=== PATIENT | female | born 1935 | race Caucasian/White ===

== ENCOUNTER 2019-04-09 09:00 | Inpatient (IN) | payer OTHER, MEDICAID ==
[2019-03-30 09:44] VITALS: BMI 28.2
[~2019-04-09] VITALS: Ht 152.4 cm; Wt 68.2 kg
[2019-04-09] VITALS (22 sets, daily range): BP systolic 135–166; BP diastolic 59–81; PULSE 61–80; RESP 16–35; Ht 152.4 cm; Wt 68.2 kg
[2019-04-09] MEDS ORDERED: TRANEXAMIC ACID 1GM/100ML(PMX) 100 ML PRE-OP X1 IVPB ONE (10:00)
[2019-04-09] MEDS ORDERED: ACETAMINOPHEN 500 MG TAB PO ONE (10:00)
[2019-04-09] MEDS ORDERED: LACTATED RINGER'S 1,000 ML IV SCH (10:00)
[2019-04-09] MEDS ORDERED: TRANEXAMIC ACID 1GM/100ML(PMX) 100 ML INTRA-OP X1 IVPB ONE (10:00)
[2019-04-09] MEDS ORDERED: DEXAMETHASONE 4 MG/ML 1 ML INJ IV ONE (10:00)
[2019-04-09] MEDS ORDERED: ACETAMINOPHEN 1000MG/100ML IV 100 ML IVPB ONE (12:30)
[2019-04-09] MEDS ORDERED: DONE10TA7 PO (12:35)
[2019-04-09] MEDS ORDERED: TRANEXAMIC ACID 1GM/100ML(PMX) 200 ML ONE (12:54)
--- NOTE | 2019-04-09 14:01 | PREAC ---
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 not on B-Josse Reported Medications Donepezil* (Aricept*) 10 Mg Tablet, 10 MG PO DAILY, TAB 04/09/19 Current Medications Lactated Ringer's 1,000 ml @ 125 mls/hr Q8H IV Last administered on 04/09/19at 12:19; Admin Dose 125 MLS/HR; Start 04/09/19 at 10:00; Stop 04/09/19 at 17:59 Meds reviewed: Yes Allergies Coded Allergies: Penicillins (Verified Allergy, Unknown, 04/09/19) Allergies Reviewed: Yes Labs/Studies Labs Reviewed: Reviewed by anesthesiologist Blood Bank Test 04/09/19 11:58 Antibody Screen NEGATIVE Blood Product Summary Counts Blood Type O POSITIVE Crossmatch Red Blood Cells test: N/A Studies: ECG, CXR, 2D Echo Pre-procedure Exam Last vitals Vital Signs Date Temp Pulse Resp B/P (MAP) Pulse Ox O2 O2 Flow FiO2 Time Delivery Rate 04/09/19 97.3 70 16 159/70 16 Room Air 12:08 (99) Airway: Adequate mouth opening, Adequate thyromental dist Mallampati: Mallampati II Teeth: Abnormal (upper partials) Lung: Normal Heart: Normal ASA Physical Status ASA physical status: 2 Emergency: None Planned Anesthetic General/MAC: Mask (vs. ), LMA Neuraxial: Spinal Planned Pain Management Parenteral pain med Pre-operative Attestations Prior to commencing anesthesia and surgery, the patient was re-evaluated, there was verification of: *The patient's identity *The results of appropriate recent lab work and preoperative vital signs *The above evaluation not changing prior to induction *Anesthetic plan, risk benefits, alternative and complications discussed with patient/family; questions answered; patient/family understands, accepts and wishes to proceed. MAIRA SEAMAN MD Apr 09, 2019 14:01
[2019-04-09] MEDS ORDERED: POLYMYXIN B 500000 UNIT INJ ONE (14:35)
[2019-04-09] MEDS ORDERED: BACITRACIN 50000 UNITS INJ ONE (14:36)
--- NOTE | 2019-04-09 15:37 | HPN ---
Date/Time of Note Date/Time of Note DATE: 04/09/19 TIME: 15:37 Interval H&P Admission Note Pt. seen H&P reviewed: No system changes MIGUEL BARRETT Apr 09, 2019 15:37
[2019-04-09] MEDS ORDERED: FENTAnyl 50 MCG/ML VIAL ONE (15:47)
[2019-04-09] MEDS ORDERED: CEFAZOLIN 1 GM INJ ONE (16:09)
[2019-04-09] MEDS ORDERED: PROPOFOL 20 ML ONE (16:10)
[2019-04-09] MEDS ORDERED: FAMOTIDINE 20 MG INJ ONE (16:10)
[2019-04-09] MEDS ORDERED: ONDANSETRON 4 MG INJ ONE (16:10)
[2019-04-09] MEDS: LACTATED RINGER'S 1,000 ML IV SCH ×2 (17:41→19:59)
--- NOTE | 2019-04-09 17:41 | SIPON ---
Date/Time of Note Date/Time of Note DATE: 04/09/19 TIME: 17:39 Operative Report Preoperative Diagnosis left femur stress fracture Postoperative Diagnosis same Operation/Procedure Performed left femur plating and strut grafting Surgeon see signature line family readiness support assistant maureen COATS)_C Anesthesia: spinal Estimated blood loss: 250 - 300 ml's Transfusion Required none Specimen none Grafts/Implants femoral strut graft, Montage graft substitute, synthes 10 holed plate Complications none MIGUEL BARRETT Apr 09, 2019 17:41
[2019-04-09] MEDS ORDERED: oxyCODONE 5 MG TAB PO PRN (18:00)
[2019-04-09] MEDS ORDERED: NALOXONE (0.4 MG/ML) INJ IV PRN (18:00)
[2019-04-09] MEDS ORDERED: MAGNESIUM HYDROXIDE 30ML CUP PO PRN (18:00)
[2019-04-09] MEDS ORDERED: NACL 0.9% 3 ML SYG IV SCH (18:00)
[2019-04-09] MEDS ORDERED: ROPIVACAINE 0.5 % 30 ML VIAL ONE (18:05)
--- NOTE | 2019-04-09 18:41 | PAC ---
Date/Time of Note Date/Time of Note DATE: 04/09/19 TIME: 18:40 Post-Anesthesia Notes Post-Anesthesia Note Last documented vital signs Vital Signs Date Temp Pulse Resp B/P (MAP) Pulse Ox O2 O2 Flow FiO2 Time Delivery Rate 04/09/19 97.3 70 16 159/70 16 Room Air 12:08 (99) Activity: WNL Respiratory function: WNL Cardiovascular function: WNL Mental status: Baseline Pain reasonably controlled: Yes Hydration appropriate: Yes Nausea/Vomiting absent: Yes Comments BP: 140/81 HR: 74 RR: 15 T: 98 SaO2: 96% MAIRA HENDRICKSON MD Apr 09, 2019 18:41
[2019-04-09] MEDS ORDERED: MEPERIDINE 25 MG INJ IV PRN (19:00)
[2019-04-09] MEDS ORDERED: ONDANSETRON 4 MG INJ IV PRN (19:00)
[2019-04-09] MEDS ORDERED: FENTAnyl 50 MCG/ML VIAL IV PRN (19:00)
[2019-04-09] MEDS ORDERED: HYDROmorphONE 1 MG/5 ML IV SYRINGE IV PRN ×2 (19:00)
[2019-04-09] MEDS ORDERED: hydrALAzine 20 MG INJ IV PRN (19:00)
[2019-04-09] MEDS ORDERED: DIPHENHYDRAMINE 50 MG INJ IV PRN (19:00)
[2019-04-09] MEDS ORDERED: PROCHLORPERAZINE 10 MG INJ IV PRN (19:00)
[2019-04-09] MEDS: CLINDAMYCIN 900 MG/D5W (PMX) 50 ML IVPB SCH (19:59)
[2019-04-09] MEDS: GABAPENTIN 100 MG CAP PO SCH (20:05)
--- NOTE | 2019-04-09 20:13 | CONS ---
Assessment/Plan Assessment/Plan Hospital Course (Demo Recall) This is a 83-year-old female who is postop left femur plating and strut grafting #1 left femur stress fracture: Patient is POD #0left femur plating and strut grafting. Weightbearing status as per orthopedic. PT OT evaluation as per orthopedics. Pain control. Will check CBC and CMP in the a.m. DVT prophylaxis of aspirin 81 mg p.o. twice daily has been ordered in the a.m. as per Ortho. #2 mild dementia: Continue donepezil #3 DVT GI prophylaxis: SCDs, she has been initiated on aspirin 81 mg p.o. twice daily to be started in the a.m. Further treatment strategy will be implemented as per the clinical course Thank you for this consultation, we will follow with you Consultation Date/Type/Reason Admit Date/Time Apr 09, 2019 at 10:53 Date of Consultation: Apr 09, 2019 Type of Consult medical management Reason for Consultation medical management Requesting Provider: MIGUEL BARRETT Date/Time of Note DATE: 04/09/19 TIME: 20:12 Hx of Present Illness Chief complaint: History of left femur fracture This is a 83-year-old female with a past medical history of mild dementia who presented today for elective surgery for left femur stress fracture.Patient has a history of left hip replacement, she reports that again she continued to have pain and she was taken to the OR by for left femur plating and strut grafting. She is doing well postop. Her pain is well controlled. Allergies: Penicillin Medications: Aricept Const: As per HPI Eyes : No pain discharge or redness or change in visual acuity ENT: No pain, sore throat, congestion, congestion, dysphagia or discharge Respiratory: No shortness of breath, cough, sputum, wheezing, or pleuritic pain Cardiovascular: No chest pain, palpitation, PND, or edema GI : no change in appetite, abdominal pain, nausea, vomiting, diarrhea, constipation, or change in the color his stool Genitourinary: No dysuria, hematuria, flank pain , discharge or CVA tenderness Musculoskeletal: As per HPI Skin: No rash, bruising or hives Neuro: No headache, dizziness, syncope, seizure, focal weakness Endocrine: No polyuria, polydipsia, temperature intolerance Psych: No hallucination, depression, anxiety or suicidal ideation Past Medical History Mild dementia, osteoarthritis, left femur stress fracture Home Meds Reported Medications Donepezil* (Aricept*) 10 Mg Tablet, 10 MG PO DAILY, TAB 04/09/19 Medications Current Medications Lactated Ringer's 1,000 ml @ 80 mls/hr [id number] IV Last administered on at 19:59; Admin Dose 80 MLS/HR; Start 04/09/19 at 17:41 Oxycodone HCl (Roxicodone) 10 mg Q4H PRN PO .PAIN; Start 04/09/19 at 18:00 Oxycodone HCl (Roxicodone) 5 mg Q4H PRN PO .PAIN; Start 04/09/19 at 18:00 Ondansetron HCl (Zofran Inj) 4 mg Q4H PRN IV NAUSEA/VOMITING; Start 04/10/19 at 18:00 Clindamycin HCl/ Dextrose 50 ml @ 50 mls/hr Q8H IVPB Last administered on 04/09/19at 19:59; Admin Dose 50 MLS/HR; Start 04/09/19 at 18:00; Stop 04/10/19 at 10:59 Gabapentin (Neurontin) 100 mg TID PO Last administered on 04/09/19at 20:05; Admin Dose 100 MG; Start 04/09/19 at 21:00 Pantoprazole (Protonix Tab) 40 mg DAILY@06 PO ; Start 04/10/19 at 06:00 Docusate Sodium (Colace) 200 mg BID PO ; Start 04/10/19 at 09:00; Stop 04/12/19 at 21:01 Magnesium Hydroxide (Milk Of Mag) 30 ml HS PRN PO .CONSTIPATION; Start 04/09/19 at 18:00 Naloxone HCl (Narcan) 0.2 mg Q2M PRN IV .RESP RATE; Start 04/09/19 at 18:00 IV Flush (NS 3 ml) 3 ml per protocol IV ; Start 04/09/19 at 18:00 Aspirin (Halfprin) 81 mg BID PO ; Start 04/10/19 at 09:00 Hydromorphone HCl (Dilaudid) 0.2 mg PACU PRN IV PAIN LEVEL 1-5; Start 04/09/19 at 19:00; Stop 04/09/19 at 23:59 Hydromorphone HCl (Dilaudid) 0.4 mg PACU PRN IV PAIN LEVEL 6-10; Start 04/09/19 at 19:00; Stop 04/09/19 at 23:59 Fentanyl (Sublimaze) 25 mcg PACU ORDER PRN IV MILD PAIN 1-3; Start 04/09/19 at 19:00; Stop 04/09/19 at 23:59 Ondansetron HCl (Zofran Inj) 4 mg PACU ORDER PRN IV NAUSEA/VOMITING; Start 04/09/19 at 19:00; Stop 04/09/19 at 23:59 Prochlorperazine (Compazine Inj) 5 mg PACU ORDER PRN IV NAUSEA/VOMITING; Start 04/09/19 at 19:00; Stop 04/09/19 at 23:59 Hydralazine HCl (Apresoline) 5 mg PACU ORDER PRN IV HIGH BLOOD PRESSURE; Start 04/09/19 at 19:00; Stop 04/09/19 at 23:59 Meperidine HCl (Demerol) 25 mg PACU ORDER PRN IV .RIGORS; Start 04/09/19 at 19:00; Stop 04/09/19 at 23:59 Diphenhydramine HCl (Benadryl) 12.5 mg PACU ORDER PRN IV .PRURITUS; Start 04/09/19 at 19:00; Stop 04/09/19 at 23:59 Allergies: Coded Allergies: Penicillins (Verified Allergy, Unknown, 04/09/19) Past Surgical History Left hip total hip replacement Left femur plating and struck grafting Family History Significant Family History: no pertinent family hx Social History Alcohol Use: none Smoking Status: Never smoker Drug Use: none Exam/Review of Systems Exam Vitals Vital Signs Date Temp Pulse Resp B/P (MAP) Pulse Ox O2 O2 Flow FiO2 Time Delivery Rate 04/09/19 76 21 138/79 94 Room Air 19:28 (98) 04/09/19 6.0 18:28 04/09/19 98.0 18:23 Exam General: Patient is a pleasant female currently lying in bed in no acute distress postoperatively HEENT: Atraumatic, normocephalic. The pupils are equal, round and reactive. Extraocular motor are intact Neck: Supple with full range of motion. No rigidity or meningismus Chest: Nontender Lungs: Clear to auscultation bilaterally no crackles rales or wheezing Heart: Normal S1-S2, Regular rhythm and rate. No murmur, S3, or S4 Abdomen: Soft , nontender, nondistended , bowel sounds are present. No guarding no rebound tenderness , No masses or organomegaly. No costovertebral temporal angle mass Extremities: Normal to inspection, no edema no cyanosis Skin: Left hip dressing clean dry and intact, did not palpate the hip as she is postop. Neurologic: Normal mental status, speech normal, cranial nerves II through XII are intact, motor and sensory are intact, Medications Medication Current Medications Lactated Ringer's 1,000 ml @ 80 mls/hr [id number] IV Last administered on 04/09/19at 19:59; Admin Dose 80 MLS/HR; Start 04/09/19 at 17:41 Oxycodone HCl (Roxicodone) 10 mg Q4H PRN PO .PAIN; Start 04/09/19 at 18:00 Oxycodone HCl (Roxicodone) 5 mg Q4H PRN PO .PAIN; Start 04/09/19 at 18:00 Ondansetron HCl (Zofran Inj) 4 mg Q4H PRN IV NAUSEA/VOMITING; Start 04/10/19 at 18:00 Clindamycin HCl/ Dextrose 50 ml @ 50 mls/hr Q8H IVPB Last administered on 04/09/19at 19:59; Admin Dose 50 MLS/HR; Start 04/09/19 at 18:00; Stop 04/10/19 at 10:59 Gabapentin (Neurontin) 100 mg TID PO Last administered on 04/09/19at 20:05; Admin Dose 100 MG; Start 04/09/19 at 21:00 Pantoprazole (Protonix Tab) 40 mg DAILY@06 PO ; Start 04/10/19 at 06:00 Docusate Sodium (Colace) 200 mg BID PO ; Start 04/10/19 at 09:00; Stop 04/12/19 at 21:01 Magnesium Hydroxide (Milk Of Mag) 30 ml HS PRN PO .CONSTIPATION; Start 04/09/19 at 18:00 Naloxone HCl (Narcan) 0.2 mg Q2M PRN IV .RESP RATE; Start 04/09/19 at 18:00 IV Flush (NS 3 ml) 3 ml per protocol IV ; Start 04/09/19 at 18:00 Aspirin (Halfprin) 81 mg BID PO ; Start 04/10/19 at 09:00 Hydromorphone HCl (Dilaudid) 0.2 mg PACU PRN IV PAIN LEVEL 1-5; Start 04/09/19 at 19:00; Stop 04/09/19 at 23:59 Hydromorphone HCl (Dilaudid) 0.4 mg PACU PRN IV PAIN LEVEL 6-10; Start 04/09/19 at 19:00; Stop 04/09/19 at 23:59 Fentanyl (Sublimaze) 25 mcg PACU ORDER PRN IV MILD PAIN 1-3; Start 04/09/19 at 19:00; Stop 04/09/19 at 23:59 Ondansetron HCl (Zofran Inj) 4 mg PACU ORDER PRN IV NAUSEA/VOMITING; Start 04/09/19 at 19:00; Stop 04/09/19 at 23:59 Prochlorperazine (Compazine Inj) 5 mg PACU ORDER PRN IV NAUSEA/VOMITING; Start 04/09/19 at 19:00; Stop 04/09/19 at 23:59 Hydralazine HCl (Apresoline) 5 mg PACU ORDER PRN IV HIGH BLOOD PRESSURE; Start 04/09/19 at 19:00; Stop 04/09/19 at 23:59 Meperidine HCl (Demerol) 25 mg PACU ORDER PRN IV .RIGORS; Start 04/09/19 at 19:00; Stop 04/09/19 at 23:59 Diphenhydramine HCl (Benadryl) 12.5 mg PACU ORDER PRN IV .PRURITUS; Start 04/09/19 at 19:00; Stop 04/09/19 at 23:59 ESTHER CARLSON Apr 09, 2019 20:13
[2019-04-10 00:30] VITALS: BP 154/67; PULSE 65; RESP 18
[2019-04-10] MEDS: CLINDAMYCIN 900 MG/D5W (PMX) 50 ML IVPB SCH ×2 (02:56→10:21)
[2019-04-10 05:00] VITALS: BP 149/67; PULSE 60; RESP 18
[2019-04-10] MEDS: PANTOPRAZOLE (EC) 40 MG TAB PO SCH (06:08)
[2019-04-10 08:02] VITALS: BP 156/64; PULSE 68; RESP 18
[2019-04-10] MEDS: DOCUSATE SODIUM 100 MG CAP PO SCH ×2 (09:15→20:15)
[2019-04-10] MEDS: oxyCODONE 5 MG TAB PO PRN (09:16)
[2019-04-10] MEDS: ASPIRIN (EC) 81 MG TAB PO SCH ×2 (09:16→20:15)
[2019-04-10] MEDS: GABAPENTIN 100 MG CAP PO SCH ×3 (09:16→20:15)
[2019-04-10] MEDS: DONEPEZIL 10 MG TAB PO SCH (09:18)
--- NOTE | 2019-04-10 10:12 | CONS ---
Assessment/Plan Assessment/Plan Hospital Course (Demo Recall) SUBJECTIVE: Incisional pain well controlled. OBJECTIVE: Physical Exam General: Adequately build 83 year-old female lying in bed in no apparent distress. HEENT: Normocephalic, atraumatic. Eyes: Anicteric sclerae, conjunctivae clear. ENT: Nasal septum midline, oral mucosa moist. Neck supple, no JVD noticed. Respiratory: Bilaterally diminished breath sounds. No use of accessory muscles of respiration. No adventitious breath sounds. Cardiovascular: S1, S2 heard. No murmurs or gallops. Abdomen: Soft, nontender, and nondistended. Bowel sounds positive in all 4 quadrants. Genitourinary: Deferred. Extremities: No cyanosis, no clubbing, no edema. Left femoral surgical dr jena. Peripheral pulses palpable. Neurologic: The patient is awake, alert, and oriented. Forgetful. Skin: Normal skin turgor. No skin rashes. Labs & Vitals per chart ASSESSMENT & PLAN 83-year-old female with past medical history of mild dementia who was brought into to [facility] for a elective operation for a left femur stress fracture. The patient underwent a left femur plating and strut grafting on 04/09/2019. The patient was admitted to inpatient setting for further monitoring. Hospitalist consult was called for medical management. 1. Left femur stress fracture. Status post left femur plating and strut grafting on 04/09/2019. Postoperative day #1. Continue pain control. Weightbearing as per orthopedic surgery. Anticoagulation as per orthopedic surgery. 2. Mild dementia. Continue Aricept. Continue frequent reorientation. 3. Normocytic anemia. Most probably anemia of chronic disease. Monitor H&H closely. Diet: Regular diet. DVT prophylaxis: As per orthopedic surgery. CODE STATUS: Full code. Thank you for the consult. Will continue to follow the patient along with you. The patient was seen in collaboration with Dr. Lay. Consultation Date/Type/Reason Admit Date/Time Apr 09, 2019 at 10:53 Initial Consult Date 04/09/19 Type of Consult Medical Reason for Consultation Medical management. Requesting Provider: MIGUEL BARRETT Date/Time of Note DATE: 04/10/19 TIME: 10:09 Exam/Review of Systems Exam Vitals Vital Signs Date Temp Pulse Resp B/P (MAP) Pulse Ox O2 O2 Flow FiO2 Time Delivery Rate 04/10/19 98.0 68 18 156/64 100 Room Air 08:02 (94) 04/09/19 6.0 18:28 Intake and Output 04/09/19 04/09/19 04/10/19 1515:00 23:00 07:00 IntakeIntake Total 3030 ml 1100 ml OutputOutput Total 50 ml 100 ml BalanceBalance 2980 ml 1000 ml Results Result Diagram: 04/10/19 0431 04/10/19 0431 Results 24hrs Laboratory Tests Test 04/09/19 20:24 04/10/19 04:31 04/10/19 08:21 White Blood Count 7.2 11.0 #H Red Blood Count 3.89 L 3.61 L Hemoglobin 11.3 L 10.7 L Hematocrit 35.8 L 32.2 L Mean Corpuscular Volume 92.0 89.2 Mean Corpuscular Hemoglobin 29.0 29.6 Mean Corpuscular 31.6 L 33.2 Hemoglobin Concent Red Cell Distribution Width 13.9 14.0 Platelet Count 163 151 Mean Platelet Volume 11.3 H 12.3 H Immature Granulocytes % 0.300 0.400 Neutrophils % 92.9 H 84.3 H Lymphocytes % 5.3 L 7.2 L Monocytes % 1.4 8.0 Eosinophils % 0.0 0.0 Basophils % 0.1 0.1 Nucleated Red Blood Cells % 0.0 0.0 Immature Granulocytes # 0.020 0.040 H Neutrophils # 6.7 9.3 H Lymphocytes # 0.4 L 0.8 Monocytes # 0.1 L 0.9 Eosinophils # 0.0 0.0 Basophils # 0.0 0.0 Nucleated Red Blood Cells # 0.0 0.0 Sodium Level 140 140 Potassium Level 4.3 3.8 Chloride Level 106 108 Carbon Dioxide Level 26 26 Anion Gap 8 6 Blood Urea Nitrogen 25 H 26 H Creatinine 0.87 0.79 Est Glomerular Filtrat Rate mL/min Glucose Level 156 103 # Calcium Level 8.6 8.6 Total Bilirubin 0.3 Direct Bilirubin 0.00 Indirect Bilirubin 0.3 Aspartate Amino Transf (AST/SGOT) 23 Alanine 18 Aminotransferase (ALT/SGPT) Alkaline Phosphatase 82 Total Protein 6.3 Albumin 3.6 Globulin 2.70 Albumin/Globulin Ratio 1.33 Lab Scanned Report REFERENCE LAB Medications Medication Current Medications Lactated Ringer's 1,000 ml @ 80 mls/hr [id number] IV Last administered on 04/09/19 19:59; Admin Dose 80 MLS/HR; Start 04/09/19 at 17:41 Oxycodone HCl (Roxicodone) 10 mg Q4H PRN PO .PAIN; Start 04/09/19 at 18:00 Oxycodone HCl (Roxicodone) 5 mg Q4H PRN PO .PAIN Last administered on 04/10/19 09:16; Admin Dose 5 MG; Start 04/09/19 at 18:00 Ondansetron HCl (Zofran Inj) 4 mg Q4H PRN IV NAUSEA/VOMITING; Start 04/10/19 at 18:00 Clindamycin HCl/ Dextrose 50 ml @ 50 mls/hr Q8H IVPB Last administered on 04/10/19 02:56; Admin Dose 50 MLS/HR; Start 04/09/19 at 18:00; Stop 04/10/19 at 10:59 Gabapentin (Neurontin) 100 mg TID PO Last administered on 04/10/19 09:16; Admin Dose 100 MG; Start 04/09/19 at 21:00 Pantoprazole (Protonix Tab) 40 mg DAILY@06 PO Last administered on 04/10/19 06:08; Admin Dose 40 MG; Start 04/10/19 at 06:00 Docusate Sodium (Colace) 200 mg BID PO Last administered on 04/10/19 09:15; Admin Dose 200 MG; Start 04/10/19 at 09:00; Stop 04/12/19 at 21:01 Magnesium Hydroxide (Milk Of Mag) 30 ml HS PRN PO .CONSTIPATION; Start 04/09/19 at 18:00 Naloxone HCl (Narcan) 0.2 mg Q2M PRN IV .RESP RATE; Start 04/09/19 at 18:00 IV Flush (NS 3 ml) 3 ml per protocol IV ; Start 04/09/19 at 18:00 Aspirin (Halfprin) 81 mg BID PO Last administered on 04/10/19 09:16; Admin Dose 81 MG; Start 04/10/19 at 09:00 Donepezil HCl (Aricept) 10 mg DAILY PO Last administered on 04/10/19 09:18; Admin Dose 10 MG; Start 04/10/19 at 09:00 LITO ALEMAN NP Apr 10, 2019 10:12
[2019-04-10 14:13] VITALS: BP 140/66; PULSE 70; RESP 18
[2019-04-10] MEDS ORDERED: ONDANSETRON 4 MG INJ IV PRN (18:00)
[2019-04-10 19:10] VITALS: BP 156/67; PULSE 75; RESP 18
[2019-04-10] MEDS: LACTATED RINGER'S 1,000 ML IV SCH (20:15)
[2019-04-11] VITALS (7 sets, daily range): BP systolic 127–177; BP diastolic 6–80; PULSE 70–112; RESP 18–20
[2019-04-11] MEDS ORDERED: hydrALAzine 20 MG INJ IV PRN (03:00)
[2019-04-11] MEDS: PANTOPRAZOLE (EC) 40 MG TAB PO SCH (06:36)
[2019-04-11] MEDS: LACTATED RINGER'S 1,000 ML IV SCH (07:11)
[2019-04-11] MEDS: DOCUSATE SODIUM 100 MG CAP PO SCH ×2 (08:51→20:44)
[2019-04-11] MEDS: oxyCODONE 5 MG TAB PO PRN (08:51)
[2019-04-11] MEDS: DONEPEZIL 10 MG TAB PO SCH (08:51)
[2019-04-11] MEDS: ASPIRIN (EC) 81 MG TAB PO SCH ×2 (08:51→20:44)
[2019-04-11] MEDS: GABAPENTIN 100 MG CAP PO SCH ×3 (08:51→20:45)
--- NOTE | 2019-04-11 09:50 | CONS ---
Assessment/Plan Assessment/Plan Hospital Course (Demo Recall) SUBJECTIVE: POD#2.No acute overnight episodes. OBJECTIVE: Vital signs-see below PHYSICAL EXAM: Constitutional: Elderly female,not in acute distress. HEENT: Head atraumatic and normocephalic. Eyes: Extraocular muscles intact. Anicteric sclerae. Pupils equal bilaterally, reactive to light. NECK: Supple without lymph node. CHEST: Clear and good breath sounds equally. No wheezing. No rhonchi. HEART: S1, S2. Regular rate and rhythm. ABDOMEN: Soft/non tender with no rebound tenderness. Bowel sounds were present. EXTREMITIES: L hip surgical site dressing c/d/i. No cyanosis, clubbing or ed twyla. NEUROLOGIC: Alert and oriented x3. No focal deficit. No sensory deficit. PSYCHOSOCIAL: No signs of depression. INTEGUMENTARY: No open wounds. ASSESSMENT AND PLAN:83-yo F w/dementia here w/left femur stress fracture requiring surgical intervention. Left femur stress fracture. -s/p left femur plating and strut grafting on 04/09/2019. -dvt ppx/pain control/rehab Dementia. -on Aricept. Chronic anemia -stable Diet: Regular diet. DVT prophylaxis:Aspirin bid per ortho CODE STATUS: Full code. Dispo:Agree w/ DC plan home w/[facility] The patient was seen in collaboration with Dr. Lay. Consultation Date/Type/Reason Admit Date/Time Apr 09, 2019 at 10:53 Initial Consult Date 04/09/19 Requesting Provider: MIGUEL BARRETT Date/Time of Note DATE: 04/11/19 TIME: 09:50 Exam/Review of Systems Exam Vitals Vital Signs Date Temp Pulse Resp B/P (MAP) Pulse Ox O2 O2 Flow FiO2 Time Delivery Rate 04/11/19 98.5 96 18 145/52 98 Room Air 07:50 (83) 04/09/19 6.0 18:28 Intake and Output 04/10/19 04/10/19 04/11/19 1515:00 23:00 07:00 IntakeIntake Total 570 ml 1100 ml OutputOutput Total 500 ml BalanceBalance 70 ml 1100 ml Results Result Diagram: 04/11/19 0501 04/11/19 0501 Results 24hrs Laboratory Tests Test 04/11/19 05:01 White Blood Count 8.4 # Red Blood Count 3.77 L Hemoglobin 11.2 L Hematocrit 33.5 L Mean Corpuscular Volume 88.9 Mean Corpuscular Hemoglobin 29.7 Mean Corpuscular Hemoglobin Concent 33.4 Red Cell Distribution Width 14.6 H Platelet Count 146 Mean Platelet Volume 11.6 H Immature Granulocytes % 0.500 H Neutrophils % 74.0 Lymphocytes % 13.4 L Monocytes % 11.8 H Eosinophils % 0.1 Basophils % 0.2 Nucleated Red Blood Cells % 0.0 Immature Granulocytes # 0.040 H Neutrophils # 6.2 Lymphocytes # 1.1 Monocytes # 1.0 H Eosinophils # 0.0 Basophils # 0.0 Nucleated Red Blood Cells # 0.0 Sodium Level 139 Potassium Level 3.8 Chloride Level 106 Carbon Dioxide Level 27 Anion Gap 6 Blood Urea Nitrogen 19 Creatinine 0.72 Est Glomerular Filtrat Rate mL/min Glucose Level 97 Calcium Level 8.7 Medications Medication Current Medications Lactated Ringer's 1,000 ml @ 80 mls/hr [id number] IV Last administered on 04/10/19at 20:15; Admin Dose 80 MLS/HR; Start 04/09/19 at 17:41 Oxycodone HCl (Roxicodone) 10 mg Q4H PRN PO .PAIN; Start 04/09/19 at 18:00 Oxycodone HCl (Roxicodone) 5 mg Q4H PRN PO .PAIN Last administered on 04/11/19at 08:51; Admin Dose 5 MG; Start 04/09/19 at 18:00 Ondansetron HCl (Zofran Inj) 4 mg Q4H PRN IV NAUSEA/VOMITING; Start 04/10/19 at 18:00 Gabapentin (Neurontin) 100 mg TID PO Last administered on 04/11/19at 08:51; Admi n Dose 100 MG; Start 04/09/19 at 21:00 Pantoprazole (Protonix Tab) 40 mg DAILY@06 PO Last administered on 04/11/19at 06:36; Admin Dose 40 MG; Start 04/10/19 at 06:00 Docusate Sodium (Colace) 200 mg BID PO Last administered on 04/11/19at 08:51; Admin Dose 200 MG; Start 04/10/19 at 09:00; Stop 04/12/19 at 21:01 Magnesium Hydroxide (Milk Of Mag) 30 ml HS PRN PO .CONSTIPATION; Start 04/09/19 at 18:00 Naloxone HCl (Narcan) 0.2 mg Q2M PRN IV .RESP RATE; Start 04/09/19 at 18:00 IV Flush (NS 3 ml) 3 ml per protocol IV ; Start 04/09/19 at 18:00 Aspirin (Halfprin) 81 mg BID PO Last administered on 04/11/19at 08:51; Admin Dose 81 MG; Start 04/10/19 at 09:00 Donepezil HCl (Aricept) 10 mg DAILY PO Last administered on 04/11/19at 08:51; Admin Dose 10 MG; Start 04/10/19 at 09:00 Hydralazine HCl (Apresoline) 10 mg Q4H PRN IV SBP above 170 Last administered on 04/11/19at 03:23; Admin Dose 10 MG; Start 04/11/19 at 03:00 VICTORIANO THOMPSON NP Apr 11, 2019 09:50
--- NOTE | 2019-04-11 14:22 | PN ---
Date/Time of Note Date/Time of Note DATE: 04/11/19 TIME: 14:20 Assessment/Plan Lines/Catheters IV Catheter Type (from Nrsg): Peripheral IV Assessment/Plan Assessment/Plan 83-year-old female who is progressing slowly after left femur plating. Based on her increased pain today and decreased mobility, 1 more day in the hospital with physical therapy will be quite beneficial. The patient will be discharged tomorrow Subjective 24 Hr Interval Summary Significant left thigh pain and difficulty with walking Feeding: advancing diet Pain Control: moderate Exam/Review of Systems Vital Signs Vitals Vital Signs Date Temp Pulse Resp B/P (MAP) Pulse Ox O2 O2 Flow FiO2 Time Delivery Rate 04/11/19 98.5 96 18 145/52 98 Room Air 07:50 (83) 04/09/19 6.0 18:28 Intake and Output 04/10/19 04/10/19 04/11/19 1515:00 23:00 07:00 IntakeIntake Total 570 ml 1100 ml OutputOutput Total 500 ml BalanceBalance 70 ml 1100 ml Exam Free Text/Dictation Left thigh incision is clean. Dressing is clean with no drainage. Moderate swelling of the left thigh is noted. There is no neurovascular deficit. Results Result Diagram: 04/11/19 0501 04/11/19 0501 MIGUEL BARRETT Apr 11, 2019 14:22
--- NOTE | 2019-04-11 14:23 | DS ---
Date/Time of Note Date/Time of Note DATE: 04/11/19 TIME: 14:22 Discharge Summary Admission/Discharge Info Admit Date/Time Apr 09, 2019 at 10:53 Discharge Date/Time April 12, 2019 Discharge Diagnosis Left femur plating Patient Condition: Good Hospital Course 83-year-old female who underwent a plating and bone grafting of her left femur for a stress fracture. Patient progressed slowly with physical therapy and is being discharged on April 12, 2019. Home health physical therapy is arranged. The patient will follow-up in 2 weeks Home Meds Reported Medications Donepezil* (Aricept*) 10 Mg Tablet, 10 MG PO DAILY, TAB 04/09/19 Follow-up Plan 2 weeks Primary Care Provider Not On Staff Doctor Time spent on discharge: < 30 minutes Pending Labs Laboratory Tests Test 04/11/19 05:01 White Blood Count 8.4 10^3/ul (4.8-10.8) Red Blood Count 3.77 10^6/ul (4.20-5.40) Hemoglobin 11.2 g/dl (12.0-16.0) Hematocrit 33.5 % (37.0-47.0) Mean Corpuscular Volume 88.9 fl (82.0-101.0) Mean Corpuscular Hemoglobin 29.7 pg (29.0-33.0) Mean Corpuscular Hemoglobin Concent 33.4 g/dl (32.0-37.0) Red Cell Distribution Width 14.6 % (11.5-14.5) Platelet Count 146 10^3/UL (140-415) Mean Platelet Volume 11.6 fl (7.4-10.4) Immature Granulocytes % 0.500 % (0.001-0.429) Neutrophils % 74.0 % (39.0-77.0) Lymphocytes % 13.4 % (15.0-51.0) Monocytes % 11.8 % (0.0-11.0) Eosinophils % 0.1 % (0.0-7.0) Basophils % 0.2 % (0.0-2.0) Nucleated Red Blood Cells % 0.0 /100WBC (0.0-0.0) Immature Granulocytes # 0.040 10^3/ul (0.0-0.031) Neutrophils # 6.2 10^3/ul (1.6-7.5) Lymphocytes # 1.1 10^3/ul (0.8-2.9) Monocytes # 1.0 10^3/ul (0.3-0.9) Eosinophils # 0.0 10^3/ul (0.0-0.5) Basophils # 0.0 10^3/ul (0.0-0.1) Nucleated Red Blood Cells # 0.0 10^3/ul (0.0-0.0) Sodium Level 139 mmol/L (135-144) Potassium Level 3.8 mmol/L (3.5-5.1) Chloride Level 106 mmol/L (97-110) Carbon Dioxide Level 27 mmol/L (21-31) Anion Gap 6 (5-13) Blood Urea Nitrogen 19 mg/dl (7-20) Creatinine 0.72 mg/dl (0.44-1.00) Est Glomerular Filtrat Rate mL/min mL/min (>60) Glucose Level 97 mg/dl (70-220) Calcium Level 8.7 mg/dl (8.4-10.2) MIGUEL BARRETT Apr 11, 2019 14:23
[2019-04-12 02:10] VITALS: BP 124/60; PULSE 90; RESP 17
[2019-04-12] MEDS: PANTOPRAZOLE (EC) 40 MG TAB PO SCH (06:34)
[2019-04-12] MEDS: oxyCODONE 5 MG TAB PO PRN ×2 (07:09→17:26)
[2019-04-12 07:50] VITALS: BP 165/68; PULSE 79; RESP 18
[2019-04-12] MEDS: ASPIRIN (EC) 81 MG TAB PO SCH ×2 (08:46→20:10)
[2019-04-12] MEDS: DOCUSATE SODIUM 100 MG CAP PO SCH ×2 (08:47→20:09)
[2019-04-12] MEDS: GABAPENTIN 100 MG CAP PO SCH ×3 (08:47→20:10)
[2019-04-12] MEDS: DONEPEZIL 10 MG TAB PO SCH (08:47)
--- NOTE | 2019-04-12 10:55 | CONS ---
Assessment/Plan Assessment/Plan Hospital Course (Demo Recall) SUBJECTIVE: POD#3.No acute overnight episodes. OBJECTIVE: Vital signs-see below PHYSICAL EXAM: Constitutional: Elderly female,not in acute distress. HEENT: Head atraumatic and normocephalic. Eyes: Extraocular muscles intact. Anicteric sclerae. Pupils equal bilaterally, reactive to light. NECK: Supple without lymph node. CHEST: Clear and good breath sounds equally. No wheezing. No rhonchi. HEART: S1, S2. Regular rate and rhythm. ABDOMEN: Soft/non tender with no rebound tenderness. Bowel sounds were present. EXTREMITIES: L hip surgical site dressing c/d/i. No cyanosis, clubbing or ed twyla. NEUROLOGIC: Alert and oriented x3. No focal deficit. No sensory deficit. PSYCHOSOCIAL: No signs of depression. INTEGUMENTARY: No open wounds. ASSESSMENT AND PLAN:83-yo F w/dementia here w/left femur stress fracture requiring surgical intervention. Left femur stress fracture. -s/p left femur plating and strut grafting on 04/09/2019. -dvt ppx/pain control/rehab Dementia. -on Aricept. Chronic anemia -stable Diet: Regular diet. DVT prophylaxis:Aspirin bid per ortho CODE STATUS: Full code. Dispo:stable from medical standpoint for dc HHPT vs ARU The patient was seen in collaboration with Dr. Lay. Consultation Date/Type/Reason Admit Date/Time Apr 09, 2019 at 10:53 Initial Consult Date 04/09/19 Requesting Provider: MIGUEL BARRETT Date/Time of Note DATE: 04/12/19 TIME: 10:54 Exam/Review of Systems Exam Vitals Vital Signs Date Temp Pulse Resp B/P (MAP) Pulse Ox O2 O2 Flow FiO2 Time Delivery Rate 04/12/19 98.3 79 18 165/68 97 Room Air 07:50 (100) 04/09/19 6.0 18:28 Intake and Output 04/11/19 04/11/19 04/12/19 1515:00 23:00 07:00 IntakeIntake Total 800 ml 1180 ml 200 ml BalanceBalance 800 ml 1180 ml 200 ml Results Result Diagram: 04/12/19 0436 04/12/19 0436 Results 24hrs Laboratory Tests Test 04/12/19 04:36 White Blood Count 7.1 Red Blood Count 3.66 L Hemoglobin 10.9 L Hematocrit 32.5 L Mean Corpuscular Volume 88.8 Mean Corpuscular Hemoglobin 29.8 Mean Corpuscular Hemoglobin Concent 33.5 Red Cell Distribution Width 14.6 H Platelet Count 152 Mean Platelet Volume 11.5 H Immature Granulocytes % 0.300 Neutrophils % 68.2 Lymphocytes % 15.6 Monocytes % 14.7 H Eosinophils % 0.8 Basophils % 0.4 Nucleated Red Blood Cells % 0.0 Immature Granulocytes # 0.020 Neutrophils # 4.8 Lymphocytes # 1.1 Monocytes # 1.0 H Eosinophils # 0.1 Basophils # 0.0 Nucleated Red Blood Cells # 0.0 Sodium Level 140 Potassium Level 4.0 Chloride Level 106 Carbon Dioxide Level 29 Anion Gap 5 Blood Urea Nitrogen 19 Creatinine 0.73 Est Glomerular Filtrat Rate mL/min Glucose Level 111 Calcium Level 8.4 Medications Medication Current Medications Oxycodone HCl (Roxicodone) 10 mg Q4H PRN PO .PAIN Last administered on 04/11/19 11:53; Admin Dose 10 MG; Start 04/09/19 at 18:00 Oxycodone HCl (Roxicodone) 5 mg Q4H PRN PO .PAIN Last administered on 04/12/19 07:09; Admin Dose 5 MG; Start 04/09/19 at 18:00 Ondansetron HCl (Zofran Inj) 4 mg Q4H PRN IV NAUSEA/VOMITING; Start 04/10/19 at 18:00 Gabapentin (Neurontin) 100 mg TID PO Last administered on 04/12/19 08:47; Admin Dose 100 MG; Start 04/09/19 at 21:00 Pantoprazole (Protonix Tab) 40 mg DAILY@06 PO Last administered on 04/12/19 06:34; Admin Dose 40 MG; Start 04/10/19 at 06:00 Docusate Sodium (Colace) 200 mg BID PO Last administered on 04/12/19 08:47; Admin Dose 200 MG; Start 04/10/19 at 09:00; Stop 04/12/19 at 21:01 Magnesium Hydroxide (Milk Of Mag) 30 ml HS PRN PO .CONSTIPATION Last administered on 04/12/19 07:09; Admin Dose 30 ML; Start 04/09/19 at 18:00 Naloxone HCl (Narcan) 0.2 mg Q2M PRN IV .RESP RATE; Start 04/09/19 at 18:00 IV Flush (NS 3 ml) 3 ml per protocol IV ; Start 04/09/19 at 18:00 Aspirin (Halfprin) 81 mg BID PO Last administered on 04/12/19at 08:46; Admin Dose 81 MG; Start 04/10/19 at 09:00 Donepezil HCl (Aricept) 10 mg DAILY PO Last administered on 04/12/19at 08:47; Admin Dose 10 MG; Start 04/10/19 at 09:00 Hydralazine HCl (Apresoline) 10 mg Q4H PRN IV SBP above 170 Last administered on 04/11/19at 03:23; Admin Dose 10 MG; Start 04/11/19 at 03:00 VICTORIANO THOMPSON NP Apr 12, 2019 10:55
[2019-04-12 16:24] VITALS: BP 161/72
[2019-04-12 19:43] VITALS: BP 159/63; PULSE 65; RESP 18
[2019-04-13 02:14] VITALS: BP 135/65; PULSE 88; RESP 18
[2019-04-13] MEDS: PANTOPRAZOLE (EC) 40 MG TAB PO SCH (06:00)
[2019-04-13 07:42] VITALS: BP 153/66; PULSE 77; RESP 18
[2019-04-13] MEDS: ASPIRIN (EC) 81 MG TAB PO SCH (08:54)
[2019-04-13] MEDS: oxyCODONE 5 MG TAB PO PRN ×2 (08:55→13:34)
[2019-04-13] MEDS: DONEPEZIL 10 MG TAB PO SCH (08:55)
[2019-04-13] MEDS: GABAPENTIN 100 MG CAP PO SCH ×2 (08:55→12:37)
--- NOTE | 2019-04-13 10:24 | CONS ---
Assessment/Plan Assessment/Plan Hospital Course (Demo Recall) SUBJECTIVE: POD#4.No acute overnight episodes. OBJECTIVE: Vital signs-see below PHYSICAL EXAM: Constitutional: Elderly female,not in acute distress. HEENT: Head atraumatic and normocephalic. Eyes: Extraocular muscles intact. Anicteric sclerae. Pupils equal bilaterally, reactive to light. NECK: Supple without lymph node. CHEST: Clear and good breath sounds equally. No wheezing. No rhonchi. HEART: S1, S2. Regular rate and rhythm. ABDOMEN: Soft/non tender with no rebound tenderness. Bowel sounds were present. EXTREMITIES: L hip surgical site dressing c/d/i. No cyanosis, clubbing or ed twyla. NEUROLOGIC: Alert and oriented x3. No focal deficit. No sensory deficit. PSYCHOSOCIAL: No signs of depression. INTEGUMENTARY: No open wounds. ASSESSMENT AND PLAN:83-yo F w/dementia here w/left femur stress fracture requiring surgical intervention. Left femur stress fracture. -s/p left femur plating and strut grafting on 04/09/2019. -dvt ppx/pain control/rehab Dementia. -on Aricept. Chronic anemia -stable Hyperkalemia -Patient is not on any medication which can contribute to hyperkalemia. Will give 1 dose Kayexalate and repeat potassium afterwards. Stable renal function. Diet: Regular diet. DVT prophylaxis:Aspirin bid per ortho CODE STATUS: Full code. Dispo:stable from medical standpoint for dc HHPT vs ARU The patient was seen in collaboration with Dr. Lugo Consultation Date/Type/Reason Admit Date/Time Apr 09, 2019 at 10:53 Initial Consult Date 04/09/19 Requesting Provider: MIGUEL BARRETT Date/Time of Note DATE: 04/13/19 TIME: 10:23 Exam/Review of Systems Exam Vitals Vital Signs Date Temp Pulse Resp B/P (MAP) Pulse Ox O2 O2 Flow FiO2 Time Delivery Rate 04/13/19 98.0 77 18 153/66 93 Room Air 07:42 (95) 04/09/19 6.0 18:28 Intake and Output 04/12/19 04/12/19 04/13/19 1515:00 23:00 07:00 IntakeIntake Total 800 ml 240 ml OutputOutput Total 300 ml BalanceBalance 800 ml -60 ml Results Result Diagram: 04/13/19 0444 04/13/19 0443 Results 24hrs Laboratory Tests Test 04/13/19 04:00 04/13/19 04:43 04/13/19 04:44 Urine Color YELLOW Urine Clarity CLEAR Urine pH 7.0 Urine Specific Bieber 1.025 Urine Ketones NEGATIVE Urine Nitrite NEGATIVE Urine Bilirubin NEGATIVE Urine Urobilinogen 1+ H Urine Leukocyte Esterase NEGATIVE Urine Hemoglobin NEGATIVE Urine Glucose NEGATIVE Urine Total Protein NEGATIVE Sodium Level 137 Potassium Level 5.9 H Chloride Level 104 Carbon Dioxide Level 29 Anion Gap 4 L Blood Urea Nitrogen 21 H Creatinine 0.61 Est Glomerular Filtrat Rate mL/min Glucose Level 97 Calcium Level 8.3 L White Blood Count 6.3 Red Blood Count 3.61 L Hemoglobin 10.6 L Hematocrit 31.9 L Mean Corpuscular Volume 88.4 Mean Corpuscular Hemoglobin 29.4 Mean Corpuscular Hemoglobin Concent 33.2 Red Cell Distribution Width 14.6 H Platelet Count 109 #L Mean Platelet Volume 12.4 H Immature Granulocytes % 0.300 Neutrophils % 65.5 Segmented Neutrophils % (Manual) 68 Band Neutrophils % (Manual) 2 Lymphocytes % 18.4 Lymphocytes % (Manual) 21 Monocytes % 13.1 H Monocytes % (Manual) 9 Eosinophils % 2.2 Basophils % 0.5 Nucleated Red Blood Cells % 0.0 Immature Granulocytes # 0.020 Neutrophils # 4.1 Neutrophils # (Manual) 4.3 Band Neutrophils # 0.1 Lymphocytes (Manual) 1.3 Lymphocytes # 1.2 Monocytes # 0.8 Monocytes # (Manual) 0.5 Eosinophils # 0.1 Basophils # 0.0 Nucleated Red Blood Cells # 0.0 Platelet Estimate DECREASED Giant Platelets 2 H Poikilocytosis 1+ Ovalocytes 1+ Medications Medication Current Medications Oxycodone HCl (Roxicodone) 10 mg Q4H PRN PO .PAIN Last administered on 04/11/19at 11:53; Admin Dose 10 MG; Start 04/09/19 at 18:00 Oxycodone HCl (Roxicodone) 5 mg Q4H PRN PO .PAIN Last administered on 04/13/19at 08:55; Admin Dose 5 MG; Start 04/09/19 at 18:00 Ondansetron HCl (Zofran Inj) 4 mg Q4H PRN IV NAUSEA/VOMITING; Start 04/10/19 at 18:00 Gabapentin (Neurontin) 100 mg TID PO Last administered on 04/13/19 08:55; Admin Dose 100 MG; Start 04/09/19 at 21:00 Pantoprazole (Protonix Tab) 40 mg DAILY@06 PO Last administered on 04/12/19 06:34; Admin Dose 40 MG; Start 04/10/19 at 06:00 Magnesium Hydroxide (Milk Of Mag) 30 ml HS PRN PO .CONSTIPATION Last administered on 04/12/19 07:09; Admin Dose 30 ML; Start 04/09/19 at 18:00 Naloxone HCl (Narcan) 0.2 mg Q2M PRN IV .RESP RATE; Start 04/09/19 at 18:00 IV Flush (NS 3 ml) 3 ml per protocol IV ; Start 04/09/19 at 18:00 Aspirin (Halfprin) 81 mg BID PO Last administered on 04/13/19 08:54; Admin Dose 81 MG; Start 04/10/19 at 09:00 Donepezil HCl (Aricept) 10 mg DAILY PO Last administered on 04/13/19 08:55; Admin Dose 10 MG; Start 04/10/19 at 09:00 Hydralazine HCl (Apresoline) 10 mg Q4H PRN IV SBP above 170 Last administered on 04/11/19 03:23; Admin Dose 10 MG; Start 04/11/19 at 03:00 VICTORIANO THOMPSON NP Apr 13, 2019 10:24
[2019-04-13] MEDS ORDERED: SOD CHLORIDE 0.9% 250 ML IV ONE (10:30)
[2019-04-13] MEDS ORDERED: SODIUM POLYSTYRENE 15 GM KIT (POWDER + SORBITOL) PO ONE (10:30)
[2019-04-13 14:31] VITALS: BP 140/68; PULSE 80; RESP 18
--- NOTE | 2019-04-23 10:07 | OPR ---
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 There is an area of the femur between the femoral stems from the hip and the knee that has developed increased pain and stress injury. This is a stress fracture that needs to be supported with bone graft and plate Procedure Description Patient was placed supine on the fracture table. The left hip was prepped and draped in usual manner. A large lateral scar was noted on the lateral aspect of the left femur. After prepping and draping, preoperative antibiotics were administered. A lateral incision was made on the left thigh. Almost the entire length of the left femur was exposed. The vastus lateralis was elevated anteriorly retractors were placed around the femur. Hemostasis was achieved with electrocautery and aqua mantis. Once the femoral shaft was exposed, the Synthes plate was placed laterally. X-rays were used to confirm overlap between the hardware from the femoral stem down to the knee prosthesis. A femoral strut graft was fashioned to fit the anterior cortex of the femur. This was an 8 inch x 1.5 inch graft. Multiple cables were used to secure the plate and the bone graft to the femoral shaft. X-rays confirm proper placement of the implants. In addition to this, the repair was reinforced with allograft bone chips as well as montage bone graft substitute. This resulted in stable fixation. The hip was irrigated and closed in layers using #1 strata fix for deep fascia, 2-0 Vicryl for subcutaneous tissue and 3-0 Monocryl for the skin. Patient was transferred to the recovery room in stable condition MIGUEL BARRETT Apr 23, 2019 10:07
== END 2019-04-13 17:30 | disposition home health service (06) | DRG 482 ==
LOC: REC 10:53 → MS1 19:37
PROVIDERS: ADMIT Orthopaedic Surgery; ATTEND Orthopaedic Surgery
PROC: 0QU90JZ Supplement Left Femoral Shaft with Synthetic Substitute, Open Approach (ICD-10-PCS; 2019-04-09)
PROC: 0QS904Z Reposition Left Femoral Shaft with Internal Fixation Device, Open Approach (ICD-10-PCS; principal; 2019-04-09 13:30)
DX: M84.352A Stress fracture, left femur, initial encounter for fracture (principal); F03.90 Unspecified dementia, unspecified severity, without behavioral disturbance, psychotic disturbance, mood disturbance, and anxiety; Z96.642 Presence of left artificial hip joint; Z96.652 Presence of left artificial knee joint
CPT/HCPCS: 73550; 80048; 80053; 81003; 84132; 85025; 86850; 86900; 86901; 86920; 87081; 97110; 97116; 97161; 97167; 97530; 97535; C1713; C1776; J0131; J0171; J0360; J0690; J0735; J1100; J1885; J2405; J2795; J3010; J7040; J7120